=== PATIENT | male | born 1950 | race Hispanic/Latino ===

== ENCOUNTER → 2019-07-05 | Outpatient (CLI) | payer BC, MEDICARE | END | disposition home or self-care (01) | LOC: RAH 10:54 | PROVIDERS: ATTEND Internal Medicine Gastroenterology | DX: K31.84 Gastroparesis (principal); R63.4 Abnormal weight loss | CPT/HCPCS: 78264; A9541 ==

== ENCOUNTER → 2020-06-17 | Outpatient (CLI) | payer BC, MEDICARE | END | disposition home or self-care (01) | LOC: RAH 10:00 | PROVIDERS: ATTEND Family Medicine | DX: S83.242A Other tear of medial meniscus, current injury, left knee, initial encounter (principal); M17.12 Unilateral primary osteoarthritis, left knee; X58.XXXA Exposure to other specified factors, initial encounter; Y93.89 Activity, other specified; Y92.89 Other specified places as the place of occurrence of the external cause; Y99.8 Other external cause status | CPT/HCPCS: 73721 ==

== ENCOUNTER 2021-05-25 08:55 | Observation (INO) | payer BC, MEDICARE, OTHER ==
[2021-05-22 10:36] LABS: BASOPHILS % (AUTO) 1.1 % (0.0-5.0); EOSINOPHILS % (AUTO) 1.8 % (0.0-8.0); HEMATOCRIT 47.1 % (42-54); MEAN CORPUSCULAR HEMOGLOBIN 32.7 pg (27.0-33.0); MEAN CORPUSCULAR HGB CONC 33.8 g/dL (32.0-36.0); MEAN CORPUSCULAR VOLUME 96.9 fL (79-99); PLATELET COUNT (AUTO) 201 K/uL (130-400); RED BLOOD CELL COUNT(AUTO) 4.86 MIL/uL (4.50-6.20); RED CELL DISTRIBUTION WIDTH 12.8 % (11.0-15.5); WHITE BLOOD COUNT (AUTO) 7.6 K/uL (4.8-10.8)
[2021-05-22 10:38] LABS: APPEARANCE,URINE Clear (CLEAR); BILIRUBIN,URINE Negative (NEGATIVE); COLOR,URINE Yellow (YELLOW); GLUCOSE, URINE (UA) Negative (NEGATIVE); KETONES,URINE Negative (NEGATIVE); LEUKOCYTE ESTERASE ,URINE Negative (NEGATIVE); NITRATE,URINE Negative (NEGATIVE); OCCULT BLOOD,URINE Trace (NEGATIVE); PH,URINE 5.5 (5.0-8.0); PROTEIN,URINE Trace mg/dL (NEGATIVE)
[2021-05-22 10:47] LABS: CREATININE 1.1 mg/dL (0.5-1.5); POTASSIUM 4.2 mmol/L (3.5-5.1)
[2021-05-22 10:50] LABS: INR 1.05 (0.85-1.15); PROTHROMBIN TIME 11.4 SEC (9.6-11.6)
[2021-05-22 10:58] LABS: BACTERIA,URINE None Seen /HPF (None Seen); MUCUS,URINE Moderate LPF (None Seen); SQUAMOUS EPITHELIAL CELL,UR 0-2 /HPF (0-2); WBC,URINE 0-1 /HPF (0-1)
[2021-05-22 11:03] VITALS: BP 175/85
[~2021-05-25] VITALS: Ht 170.2 cm; Wt 84.5 kg
[2021-05-25] VITALS (21 sets, daily range): BP systolic 140–176; BP diastolic 66–90
[2021-05-25] MEDS ORDERED: LACTATED RINGERS 1000ML 1,000 ML IV ONE (09:21)
[2021-05-25] MEDS: CEFAZOLIN SODIUM 1 GM VIAL ONE ×2 (10:13→12:01)
[2021-05-25] MEDS ORDERED: ROSU40TA21 PO (10:25)
[2021-05-25] MEDS ORDERED: PANT40TA54 PO (10:25)
[2021-05-25] MEDS ORDERED: MONT-39 PO (10:25)
[2021-05-25] MEDS ORDERED: LEVO50CA4 PO (10:25)
[2021-05-25] MEDS ORDERED: CYAN250010 PO (10:25)
[2021-05-25] MEDS ORDERED: CHOL400T4 PO (10:25)
[2021-05-25] MEDS ORDERED: AEC81 PO (10:25)
[2021-05-25] MEDS ORDERED: LOSA100T58 PO (10:25)
[2021-05-25] MEDS ORDERED: FISH1CAP50 PO (10:25)
[2021-05-25] MEDS ORDERED: ACET-2893 PO (10:25)
[2021-05-25] MEDS ORDERED: TRANEXAMIC ACID 1000MG/10ML ONE ×2 (11:41→15:41)
[2021-05-25] MEDS ORDERED: CEFAZOLIN SODIUM 1 GM VIAL ONE ×2 (11:41→18:27)
[2021-05-25] MEDS ORDERED: ACETAMINOPHEN 500 MG TABLET ONE (11:42)
[2021-05-25] MEDS ORDERED: CELECOXIB 200 MG CAP ONE (11:42)
[2021-05-25] MEDS ORDERED: KETOROLAC 15MG/ML VIAL (15MG/ML) ONE (11:42)
[2021-05-25] MEDS ORDERED: SUCCINYLCHOLINE CHLORIDE 20 MG/ML 10 ML VIAL ONE (12:42)
[2021-05-25] MEDS ORDERED: LIDOCAINE PF 100MG/5ML (2%) SYRINGE 5ML ONE (12:42)
[2021-05-25] MEDS ORDERED: ROCURONIUM 10MG/1ML SYR 10 MG/ML ML ONE ×2 (12:43→13:49)
[2021-05-25] MEDS ORDERED: PROPOFOL 10 MG/ML 20ML VIAL IV ONE (12:43)
[2021-05-25] MEDS ORDERED: MIDAZOLAM HCL 1 MG/ML 2ML VIAL ONE (12:43)
[2021-05-25] MEDS ORDERED: FENTANYL CITRATE PF 50 MCG/1 ML 2ML VIAL ONE (12:43)
[2021-05-25] MEDS ORDERED: CEFAZOLIN SODIUM 1 GM VIAL IRRIG ONE (12:50)
[2021-05-25] MEDS ORDERED: ROPIVACAINE 0.5% 5MG/ML 30ML IJ ONE (12:57)
[2021-05-25] MEDS ORDERED: GLYCOPYRROLATE 1 MG/5 ML SYRINGE ONE ×2 (13:31→14:53)
[2021-05-25] MEDS ORDERED: NEOSTIGMINE 5MG/5ML SYR IV ONE (14:53)
[2021-05-25] MEDS ORDERED: CALCIUM CARB 500MG PO PRN (15:00)
[2021-05-25] MEDS ORDERED: DiphenhydrAMINE HCL 50 MG/ML VIAL IVP PRN (15:00)
[2021-05-25] MEDS ORDERED: KCL 20 MEQ ERTAB PO PRN (15:00)
[2021-05-25] MEDS ORDERED: 0.9%NACL 1000ML 1,000 ML IV SCH (15:00)
[2021-05-25] MEDS ORDERED: KETOROLAC 15MG/ML VIAL (15MG/ML) IV PRN (15:00)
[2021-05-25] MEDS ORDERED: POTASSIUM CHLORIDE 20MEQ/100ML 100 ML IV PRN (15:00)
[2021-05-25] MEDS ORDERED: LIDOCAINE HCL-MPF 1% 2ML VIAL IV PRN (15:00)
[2021-05-25] MEDS ORDERED: FERROUS FUMARATE 324 MG TABLET PO PRN (15:00)
[2021-05-25] MEDS: ACETAMINOPHEN 500 MG TABLET PO SCH ×2 (15:00→21:18)
[2021-05-25] MEDS ORDERED: ONDANSETRON 4MG INJ IVP PRN (15:00)
[2021-05-25] MEDS ORDERED: POTASSIUM CHLORIDE 10% ELIXIR 20 MEQ/15 ML UDCUP PO PRN (15:00)
[2021-05-25] MEDS ORDERED: MEPERIDINE-PF 25 MG/ML SYG ONE (15:44)
[2021-05-25] MEDS: CEFAZOLIN SODIUM 1 GM VIAL IVP SCH (18:28)
[2021-05-25] MEDS: OXYCODONE HCL 5 MG TAB PO PRN (18:28)
[2021-05-25] MEDS ORDERED: ASPIRIN 81 MG EC TAB PO SCH (21:00)
[2021-05-25] MEDS: ASPIRIN 81 MG EC TAB PO SCH (21:17)
[2021-05-25] MEDS: PREGABALIN 25 MG CAP PO SCH (21:17)
[2021-05-25] MEDS: CELECOXIB 200 MG CAP PO SCH (21:17)
[2021-05-26 00:21] VITALS: BP 160/79
[2021-05-26] MEDS: OXYCODONE HCL 5 MG TAB PO PRN ×4 (00:33→20:46)
[2021-05-26] MEDS: CEFAZOLIN SODIUM 1 GM VIAL IVP SCH (03:34)
[2021-05-26] MEDS: TRAMADOL HCL 50 MG TABLET PO PRN ×2 (03:43→10:30)
[2021-05-26 04:15] VITALS: BP 156/76
[2021-05-26 04:16] LABS: HEMATOCRIT 39.6 % (42-54); MEAN CORPUSCULAR HGB CONC 33.3 g/dL (32.0-36.0); MEAN CORPUSCULAR VOLUME 96.1 fL (79-99); RED BLOOD CELL COUNT(AUTO) 4.12 MIL/uL (4.50-6.20); RED CELL DISTRIBUTION WIDTH 12.1 % (11.0-15.5); WHITE BLOOD COUNT (AUTO) 13.8 K/uL (4.8-10.8)
[2021-05-26 04:32] LABS: CREATININE 1.2 mg/dL (0.5-1.5); POTASSIUM 4.1 mmol/L (3.5-5.1)
[2021-05-26 05:00] VITALS: BP 146/74
[2021-05-26] MEDS: ACETAMINOPHEN 500 MG TABLET PO SCH ×2 (05:55→15:38)
[2021-05-26] MEDS ORDERED: LEVOTHYROXINE 50 MCG TABLET PO SCH (06:30)
[2021-05-26 08:08] VITALS: BP 139/82
[2021-05-26] MEDS: CELECOXIB 200 MG CAP PO SCH ×2 (09:00→20:47)
[2021-05-26] MEDS ORDERED: MONTELUKAST SODIUM 10 MG TAB PO SCH (09:00)
[2021-05-26] MEDS ORDERED: ATORVASTATIN 40 MG TABLET PO SCH (09:00)
[2021-05-26] MEDS ORDERED: TAMSULOSIN HCL 0.4 MG CAP.ER.24H PO SCH (09:00)
[2021-05-26] MEDS ORDERED: LOSARTAN 100 MG TABLET PO SCH (09:00)
[2021-05-26] MEDS ORDERED: POLYETHYLENE GLYCOL 3350 17 GM POWD.PACK PO SCH (09:00)
[2021-05-26] MEDS ORDERED: FISH OIL 1000 MG/CAP PO SCH (09:00)
[2021-05-26] MEDS ORDERED: CHOLECALCIFEROL 10 MCG PO SCH (09:00)
[2021-05-26] MEDS: PREGABALIN 25 MG CAP PO SCH ×2 (09:00→20:47)
[2021-05-26] MEDS: ASPIRIN 81 MG EC TAB PO SCH ×2 (09:00→20:46)
[2021-05-26] MEDS ORDERED: CYANOCOBALAMIN (VITAMIN B-12) 1,000 MCG TABLET PO SCH (09:00)
[2021-05-26] MEDS ORDERED: PANTOPRAZOLE 40 MG TAB DR PO SCH (09:00)
[2021-05-26 12:00] VITALS: BP 122/62
[2021-05-26 15:48] VITALS: BP 136/62
[2021-05-26] MEDS ORDERED: HYDR-4060 PO (17:52)
[2021-05-26] MEDS ORDERED: AEC81 PO (17:52)
[2021-05-28] MEDS ORDERED: BISACODYL 10 MG SUPP.RECT RC PRN (15:00)
== END 2021-05-26 20:40 | disposition home health service (06) ==
LOC: DAH 08:55 → DAHIP 08:56 → 4BH 16:35
PROVIDERS: ADMIT Orthopaedic Surgery; ATTEND Orthopaedic Surgery
DX: M17.12 Unilateral primary osteoarthritis, left knee (principal); Z20.822 Contact with and (suspected) exposure to COVID-19; M23.8X2 Other internal derangements of left knee; D64.9 Anemia, unspecified; Z98.890 Other specified postprocedural states; Z79.82 Long term (current) use of aspirin; Z79.899 Other long term (current) drug therapy
CPT/HCPCS: 27447; 36415 ×2; 64447; 76942; 80048 ×2; 81001; 85025; 85027; 85610; 87088; 87635; 87641; 93005; 96374; 96376; 97039 ×2; 97116 ×2; 97161; 97530 ×2; A4215; A4216; A4221; A4222; A4223 ×2; A4649 ×5; A4663; A4930 ×4; A9272; C1776; C9803; G0378 ×28; J0330; J0690 ×5; J1885; J2001; J2175; J2250; J2704; J2710; J2795; J3010; J3490 ×4; J7120 ×2